=== PATIENT | male | born 1950 | race Caucasian/White ===

== ENCOUNTER 2020-12-20 04:46 | Day surgery (SDC) | payer OTHER ==
[2020-12-20 08:15] VITALS: BMI 24.4
[2020-12-20 09:30] VITALS: TEMP 98
[2020-12-20 09:54] VITALS: BP 129/81; PULSE 75
== END 2020-12-20 10:01 | disposition home or self-care (01) ==
LOC: JASU-ENDO 04:46
PROVIDERS: ATTEND Internal Medicine Gastroenterology
PROC: 0DJD8ZZ Inspection of Lower Intestinal Tract, Via Natural or Artificial Opening Endoscopic (ICD-10-PCS; principal; 2020-12-20 09:00)
DX: Z12.11 Encounter for screening for malignant neoplasm of colon (principal); K92.1 Melena; K57.30 Diverticulosis of large intestine without perforation or abscess without bleeding; K64.8 Other hemorrhoids; Z86.010 Personal history of colon polyps